=== PATIENT | female | born 1980 | race Caucasian/White ===

== ENCOUNTER 2016-07-23 10:03 | Observation (INO) | payer OTHER ==
[~2016-07-23] VITALS: Ht 162.6 cm; Wt 150.0 kg
[~2016-07-23 10:03] MED LIST: CELE20TA PO; COLE1TAB2 PO; HYDR-3516 PO; LAMI200T PO; MULTTAB67 PO; OMEP20TA PO; SERO300T PO; XYZA5TAB2 PO
[2016-07-23] MEDS ORDERED: NEOSTIGMINE 3 MG/3 ML SYR IV ONE (12:00)
[2016-07-23] MEDS ORDERED: PROPOFOL 200 MG/20 ML AMP IV ONE (12:00)
[2016-07-23] MEDS ORDERED: LACTATED RINGER'S 1000 ML INJ 2,000 ML IV ONE (12:00)
[2016-07-23] MEDS ORDERED: ONDANSETRON HCL 4 MG/2 ML VIAL IV PUSH ONE (12:00)
[2016-07-23 12:58] VITALS: BP 181/103; PULSE 109; RESP 16; TEMP 97.3; O2SAT 96
[2016-07-23] MEDS ORDERED: METOPROLOL TARTRATE 25 MG TAB PO PRN (13:30)
[2016-07-23] MEDS ORDERED: INSULIN HUMAN REGULAR 1,000 UNITS/10 ML VIAL SQ PRN (13:30)
[2016-07-23] MEDS ORDERED: LACTATED RINGER'S 1000 ML IV SCH (13:30)
[2016-07-23] MEDS ORDERED: SODIUM CHLORID 0.9% 500 ML IV SCH (13:30)
[2016-07-23] MEDS ORDERED: ceFAZolin 2 GM PREMIX 50 ML ONE (15:15)
[2016-07-23] MEDS ORDERED: MICROFIBRILLAR COLLAGEN HEMOSTAT 70 X 35 MM BANDAGE ONE (15:15)
[2016-07-23] MEDS ORDERED: THROMBIN (TOPICAL) 5,000 UNIT VIAL ONE ×2 (15:15→15:49)
[2016-07-23] MEDS ORDERED: GELFOAM SIZE 100 ONE ×2 (15:15→15:50)
[2016-07-23] MEDS ORDERED: VANCOMYCIN HCL 1000 MG VIAL ONE (15:15)
[2016-07-23] MEDS ORDERED: SODIUM CHLOR 0.9% 250 ML INJ 250 ML ONE (15:16)
[2016-07-23] MEDS ORDERED: DEXAMETHASONE SOD PHOS 20 MG/5 ML VIAL ONE ×2 (15:16→15:50)
[2016-07-23] MEDS ORDERED: GENTAMICIN SULFATE 80 MG/2 ML VIAL ONE ×2 (15:16→15:51)
[2016-07-23] MEDS ORDERED: ACETAMINOPHEN 1000 MG/100 ML VIAL IV ONE (15:44)
[2016-07-23] MEDS ORDERED: SUGAMMADEX SODIUM 200 MG/2 ML VIAL IV PUSH ONE ×2 (15:44)
[2016-07-23] MEDS ORDERED: PROPOFOL 500 MG/50 ML INJ 50 ML ONE ×3 (15:46→15:47)
[2016-07-23] MEDS ORDERED: MICROFIBRILLAR COLLAGEN HEMOSTAT 1 GM PKT ONE (15:50)
[2016-07-23] MEDS ORDERED: ceFAZolin INJ 1,000 MG VIAL ONE (15:50)
[2016-07-23] MEDS ORDERED: MIDAZOLAM HCL 2 MG/2 ML VIAL ONE ×2 (16:09→16:46)
[2016-07-23] MEDS ORDERED: FAMOTIDINE 20 MG/2 ML VIAL ONE ×2 (16:09→16:46)
[2016-07-23] MEDS ORDERED: SODIUM CHLORIDE 0.9% FLUSH 5 ML FLUSH IVF PRN (18:15)
[2016-07-23] MEDS ORDERED: ACETAMINOPHEN 325 MG TAB PO PRN (18:15)
[2016-07-23] MEDS ORDERED: CYCLOBENZAPRINE HCL 10 MG TAB PO PRN (18:15)
[2016-07-23] MEDS ORDERED: MENTHOL LOZENGE SUCK-ON PRN (18:15)
[2016-07-23] MEDS ORDERED: MORPHINE SULFATE 4 MG/ML INJ IV PUSH PRN ×2 (18:15)
[2016-07-23] MEDS ORDERED: BISACODYL 10 MG SUPP PR PRN (18:15)
[2016-07-23] MEDS ORDERED: ACETAMINOPHEN/HYDROcodone 325 MG/10 MG TAB PO PRN (18:15)
[2016-07-23] MEDS ORDERED: ONDANSETRON HCL 4 MG/2 ML VIAL IV PRN (18:15)
[2016-07-23] MEDS ORDERED: SUFentanil INJ 250 MCG/5 ML AMP ONE (19:13)
[2016-07-23] MEDS ORDERED: ceFAZolin 2 GM PREMIX 50 ML IV SCH ×2 (20:00→22:15)
[2016-07-23] MEDS ORDERED: HYDR-3583 PO (20:53)
--- NOTE | 2016-07-23 20:54 | PD.OP ---
Operative Report Date of Surgery: Jul 23, 2016 Preoperative Diagnosis: C6-7 disk herniation Postoperative Diagnosis: C6-7 disk herniation Procedure: C6-7 anterior cervical discectomy, interbody arthodhesis using PEEK cage filled with autologous bone graft, Simplicity plate and screws. Anesthesia: general Surgeon: Raymundo Mahmood Thermite Welder(s): sandra godwin Operation and Findings: INDICATIONS FOR THE PROCEDURE Ms Mendez is a 35 year-old female who presented with intractable neck pain and clinical evidence of C7 upper extremity radiculopathy. He was found to have significant spondylosis with stenosis. He has failed maximum nonsurgical management including multiple modalities of conservative treatment as well as pain management interventions by an interventional pain specialist. A surgical decompression and arthrodhesis were indicated. The rnsj-gf-[id number] details of the procedure, indications, alternatives, risks and potential complications were fully discussed with the patient. The patient fully understood. All The questions were answered. No guarantees were given. The patient voiced requesting the procedure and provided informed consents. The patient was offered the alternative of delaying the procedure and continuing with nonsurgical management. DETAILS OF THE SURGICAL PROCEDURE After the induction of general anesthesia, endotracheal intubation was performed. A Scherer catheter, bilateral DESEAN hose, and sequential compression devices were placed and kept throughout the procedure. Placement of electrodes for neurophysiological monitoring of the somato sensorial evoked potentials. motor evoked potentials, and EMG as well as laryngeal nerve monitoring was achieved. The patient was positioned supine on a Fabian table with the head over a gel doughnut. All pressure points were carefully padded with eggcrate mattress. The eyes were tapped shut after ointment was applied by the anesthesiologist to prevent corneal abrasion. A Elmer hugger was placed over the exposed lower body to maintain control of the core body temperature. The electrophysiological team placed the needles and electrodes in their proper location and baseline SSEP's and motor evoked potentials were registered prior and after positioning and endotracheal intubation. The anterior cervical region was prepped and draped in the usual sterile fashion. A localizing x-ray was performed with a C-arm. The intention was to attempt an arthroplasty with placement of mobi c artificial disk, however, given the patient's short neck, obesity, large shoulders and overall body habitus, it was not possible to properly visualize C6-7. It was just not possible. Over an hout was spent attemting, including any known facilitating maneuvers, pulling down the shoulders, max colimation/boosting, and the use of multiple angles. A board certified radiologist was brought into the operating room to assist and provide suggestions. The level could be only be visualize on an AP view, but lateral views of C6-7 could not uriel obtained. Therefore, it was not deemed safe the placement of a mobi C disk without proper visualization The surgical procedure was then performed in several steps as follow: SURGICAL APPROACH A skin incision was made along the inferior cervical crease with a #10 blade. The dissection was carried out through the platysma exposing the sternocleidomastoid muscle. The cervical spine was approached following the fascial layers of the neck just medial to the anterior border of the sternocleidomastoid and carotid sheath by a combination of sharp and dull dissection. The omohyoid muscle was identified and carefully dissected laterally and the deep cervical fascia was carefully opened. The longus colli muscles were retracted to each side of the midline. A marker was placed at the disc space C5-6 and a cross-table lateral x-ray performed with a C-arm. SURGICAL DECOMPRESSION In order to decompress the anterior surface of the spinal cord it was necessary to preform a microsurgical resection of the disk at C5-6 and C6-7. At this point in the procedure the operating microscope was draped in the usual sterile fashion and brought to the field. The rest of the surgical procedure was performed using microdissection technique with the exception of the closure. Under the operative microscopic, a self-retaining retractor was placed underneath the longus colli muscle. Anterior osteophite spurs werte carefully removed with the Leksell. The annulus at C5-6 and C6-7 were incised with a #15 blade and microdiscectomy was then carefully carried out using angled curets and pituitary forceps. There were a large disk extrusion producing mass effect and compression of the dural sac and nerve roots. The posterior longitudinal ligament was then elevated with an angled curet and incised with a 15 bladed knife. A careful resection of the posterior longitudinal ligament was carried out using a thin footplate 2 mm Kerrison. A nerve hook was used to assess the epidural space behind the vertebral bodies C6, and C7 in search for residual disk fragments. The margins of the posterior endplates at C6-7 were carefully drilled and undercut with a TPS drill under high magnification. The decompression was then carried out laterally, and a bilateral foraminotomy was performed with a 2mm thin foot Kerrison. Then the vertebral bodies above and below the disk space were undercut using a 2 mm thin foot Kerrison. The epidural space was the systematically assessed with a nerve hook in search for disk fragments of scar tissue. An excellent decompression was achieved in both , the dural sac and bilateral exiting nerve roots. The incision was then irrigated with a large amount of antibiotic solution INTERBODY ARTHRODHESIS In order to avoid collapse of the disk space which would result in bilateral foraminal stenosis, and to increase the chances of a successful fusion, it was necessary to place an interbody cage filled with autologous bone. At this point of the procedure, the superior and inferior endplates were then evenly decorticated with a TPS drill. The use of a drill in combination with a curette allowed me to systematically remove the cartilaginous endplates, exposing healthy bone for the interbody arthrodesis. Fourteen millimeters distraction pins were then placed at the vertebral bodies adjacent to the disk space, and gentle distraction was applied. The size of the interbody cage was then assessed using different size spacers, and a rasp was used to ensure no residual cartilage. A PEEK cage of the appropriate size was selected, and the interbody arthrodesis was then preformed by carefully impacting a PEEK cage filled with autologous bone graft to the disc spaces C6-7. An excellent position of the cage was achieved. This was was confirmed anatomically by feeling the space posterior to the implant and distance to the anterior surface of the dural sac. Radiological confirmation of the position was performed with a cross lateral xray performed with the C-arm. INTERNAL INSTRUMENTAL FIXATION Once that the interbody device was in an appropriate position, it was necessary to stabilize the spine with anterior instrumentation. Anterior instrumentation has demonstrated to increase the rate of fusion, accelerate the patient's recovery, and decrease the rate of failed interbody grafts. At this point of the procedure, the distance between the vertebral bodies was carefully measures, and a Simplicity plate was brought to the field and presented in front of the vertebral bodies C6, and C7. Configuration Management Architect holes were then drilled using the TPS drill, and the plate was then secured to the spine using self-drilling, self-tapping screws. Initially, the inferior right screw was inserted, followed by placement of the contralateral upper screw. The remanding screws were sequentially placed in a contra-lateral fashion. A proper purchase was achieved with all screws and the position of the cage, plate and screws, and alignment of the spine was assessed anatomically by direct visualization, and radiologically by performing a cross lateral xray of the cervical spine with the C-arm. CLOSURE The incision was irrigated with several liters of antibiotic solution. Hemostasis was achieved with a bipolar. The screws were locked to prevent backing out. A 7 mm Fabian-Schmidt drain was left in the prevertebral space and externalized through a separate stab incision. The incision was then closed in layers. 3-0 Vicryl with interrupted sutures was used to close the platysma and subcutaneous tissue. The skin was closed with 4-0 running subcuticular Vicryl and glue was applied to the skin. The drain was secured with a 3-0 nylon. At the end of the procedure the sponge, needle and instrument counts were all correct. The estimated blood loss was less than 80 cc. No blood transfusion was given. No intraoperative complications occurred. The patient received prophylactic antibiotics. The patient was then extubated and transferred to the recovery room in stable condition. Raymundo Mahmood MD Jul 23, 2016 20:54
[2016-07-23] MEDS ORDERED: DEXAMETHASONE SOD PHOS 4 MG/ML VIAL IV SCH (21:00)
[2016-07-23] MEDS ORDERED: LEVOCETIRIZINE 5 MG PO SCH (21:00)
[2016-07-23] MEDS ORDERED: fentaNYL CITRATE 250 MCG/5 ML AMP ONE (21:47)
[2016-07-23] MEDS ORDERED: MORPHINE SULFATE 4 MG/ML INJ ONE (21:48)
[2016-07-23] MEDS: SODIUM CHLORIDE 0.9% FLUSH 5 ML FLUSH IVF SCH (22:00)
[2016-07-23] MEDS: NS + KCL 20 MEQ INJ 1,000 ML IV SCH (22:00)
[2016-07-23] MEDS ORDERED: *morphine SULFATE 8 MG/ML PERIprocedure ONLY ONE ×2 (22:10→22:33)
[2016-07-23] MEDS ORDERED: *MEPERIDINE 25 MG INJ VIAL PERIprocedural Use ONLY ONE (22:11)
[2016-07-23] MEDS ORDERED: DO NOT ADM ANY ANTICOAGULANT DRUGS XX PRN (22:15)
--- NOTE | 2016-07-23 22:28 | RADRPT ---
EXAM DATE/TIME: 07/23/2016 17:05 [facility] COMPARISON: No previous studies available for comparison. INDICATIONS : C6-C7 cervical diskectomy with fusion MEDICAL HISTORY : None. SURGICAL HISTORY : None. ENCOUNTER: Initial ACUITY: 1 day PAIN SCORE: Non-responsive. LOCATION: C6-C7 Cervical spine CONCLUSION: Fluoroscopic images during anterior fusion plate and intervertebral disc device at C6-7 level. Zach Green MD on July 23, 2016 at 22:25 Board Certified Radiologist. This report was verified electronically.
[2016-07-23 23:35] VITALS: BP 130/60; PULSE 115; RESP 20; TEMP 98.8; O2SAT 91
[2016-07-24] VITALS (7 sets, daily range): BP systolic 120–129; BP diastolic 63–74; PULSE 108–123; RESP 16–22; TEMP 96.2–98; O2SAT 92–98
[2016-07-24] MEDS: QUEtiapine FUMARATE 300 MG TAB PO SCH ×2 (00:04→20:11)
[2016-07-24] MEDS: lamoTRIgine 100 MG TAB PO SCH ×3 (00:04→20:11)
[2016-07-24] MEDS: CITALOPRAM HYDROBROMIDE 20 MG TAB PO SCH ×2 (00:04→20:11)
[2016-07-24] MEDS: DOCUSATE SODIUM 100 MG CAP PO SCH ×3 (00:04→20:10)
[2016-07-24] MEDS: DEXAMETHASONE SOD PHOS 4 MG/ML VIAL IV SCH ×3 (00:06→14:28)
[2016-07-24] MEDS: ceFAZolin 2 GM PREMIX 50 ML IV SCH ×3 (01:33→17:57)
[2016-07-24] MEDS: ACETAMINOPHEN/HYDROcodone 325 MG/10 MG TAB PO PRN ×5 (05:22→23:10)
[2016-07-24] MEDS: COLESTIPOL HCL 5 GM PACKET PO SCH ×3 (08:00→18:04)
[2016-07-24] MEDS: MULTIVITAMIN TAB PO SCH (08:33)
[2016-07-24] MEDS: PANTOPRAZOLE SOD 40 MG DELAYED RELEASE TAB PO SCH (08:33)
[2016-07-24] MEDS: SODIUM CHLORIDE 0.9% FLUSH 5 ML FLUSH IVF SCH ×2 (08:35→20:11)
[2016-07-24] MEDS: NS + KCL 20 MEQ INJ 1,000 ML IV SCH (08:40)
[2016-07-24] MEDS ORDERED: PANTOPRAZOLE SOD 20 MG DELAYED RELEASE TAB PO SCH (09:00)
[2016-07-24] MEDS ORDERED: CYCL1TAB29 PO (14:49)
[2016-07-24] MEDS ORDERED: HYDR-3583 PO (14:49)
--- NOTE | 2016-07-24 20:38 | HHI.DS ---
Discharge Summary Admission Date Jul 23, 2016 at 18:10 Discharge Date: Jul 25, 2016 Admitting Diagnosis Cervical herniated disc (1) Cervical radiculopathy Diagnosis: Principal Hospital Course The patient was observed for breathing and pain control over night. She did well with PT. Pt Condition on Discharge: Good Discharge Disposition: Discharge Home Discharge Instructions DIET: Follow Instructions for: As Tolerated, No Restrictions Speech Therapy-Diet Recommenda: Soft ADDITIONAL Diet Instructions: soft, slow ACTIVITIES You can perform: Weight Bearing As Rajani Activities to Avoid: Driving New Medications: Cyclobenzaprine (Flexeril) 10 Mg Tab 10 MG PO Q8H PRN MUSCLE SPASM #90 Ref 5 TAB Hydrocodone-Acetaminophen (Hydrocodone-Acetaminophen) 10-325 mg Tab 1 TAB PO Q8HR PRN PAIN SCALE 1 TO 10 #62 Ref 0 TAB Hydrocodone-Acetaminophen (Hydrocodone-Acetaminophen) 10-325 mg Tab 10 MG PO Q4H PRN PAIN SCALE 6 TO 10 #60 Ref 1 TAB Continued Medications: Citalopram (Celexa) 20 Mg Tab 20 MG PO HS Control Depression #30 Ref 0 TAB Colestipol (Colestipol) 1 Gm Tab 2 GM PO TID Cholesterol Management #60 Ref 0 TAB Hydrocodone-Acetaminophen (Hydrocodone-Acetaminophen) 5-325 mg Tab 1 TAB PO Q4H PRN PAIN Ref 0 TAB Lamotrigine (Lamictal) 200 Mg Tab 200 MG PO BID Control Seizures #60 Ref 0 TAB Levocetirizine (Xyzal) 5 Mg Tab 5 MG PO HS Allergy Management #30 Ref 0 TAB Multiple Vitamin (Multiple Vitamin) 1 Tab 1 TAB PO DAILY Nutritional Supplement Ref 0 TAB Omeprazole (Omeprazole) 20 Mg Tab 20 MG PO DAILY #30 Ref 0 TAB Quetiapine (Seroquel) 300 Mg Tab 300 MG PO HS #30 Ref 0 TAB Rojelio Laughlin Jul 24, 2016 20:38
--- NOTE | 2016-07-24 20:41 | HHI.NSPN ---
History Chief Complaint: none Interval History 35 yr old s/p ACDF for cervical radiculopathy has no complaints today. Review of Systems General: Negative for: fever, chills, insomnia Cardiovascular: Negative for: chest pain, palpitations, orthopnea Exam Results Vital Signs Date Time Temp Pulse Resp B/P Pulse Ox O2 Delivery O2 Flow Rate FiO2 07/24/16 16:02 97 Nasal Cannula 3.00 07/24/16 16:00 98.0 108 16 120/70 Intake and Output 07/23/16 07/23/16 07/24/16 08:00 16:00 00:00 Intake Total 3200 ml Output Total 410 ml Balance 2790 ml Physical Examination Alert and oriented x 3, Motor 5/5 in both delt/bic/tri/IO Sensory intact to LT throughout Drain removed, 15 cc total. Wound dry Medical Decision Making Impression and Plan Stable, pain management and PT was helpful today.Plan home discharge with family in the am. Questions were answered. Total Minutes: 10 Rojelio Laughlin Jul 24, 2016 20:41
[2016-07-25] VITALS: BP 133/81; PULSE 101; RESP 18; TEMP 98; O2SAT 95
[2016-07-25 04:00] VITALS: BP 154/90; PULSE 102; RESP 22; TEMP 97.1; O2SAT 97
[2016-07-25] MEDS: ACETAMINOPHEN/HYDROcodone 325 MG/10 MG TAB PO PRN ×2 (05:31→09:34)
[2016-07-25 06:04] VITALS: O2SAT 97
[2016-07-25] MEDS: MULTIVITAMIN TAB PO SCH (07:13)
[2016-07-25] MEDS: lamoTRIgine 100 MG TAB PO SCH (07:13)
[2016-07-25] MEDS: DOCUSATE SODIUM 100 MG CAP PO SCH (07:13)
[2016-07-25] MEDS: PANTOPRAZOLE SOD 40 MG DELAYED RELEASE TAB PO SCH (07:13)
[2016-07-25] MEDS: SODIUM CHLORIDE 0.9% FLUSH 5 ML FLUSH IVF SCH (07:13)
[2016-07-25] MEDS: COLESTIPOL HCL 5 GM PACKET PO SCH (07:14)
[2016-07-25 08:00] VITALS: BP 157/99; PULSE 91; RESP 19; TEMP 95.9; O2SAT 98
[2016-07-25 09:36] VITALS: O2SAT 97
[2016-08-04] MEDS ORDERED: HYDR-3583 PO ×2 (15:25)
== END 2016-07-25 11:31 | disposition home or self-care (01) ==
LOC: UNDOADMIN 10:03 → HSDC 10:03 → HSDI 10:03 → EDSTATUS 12:00 → HSDC 18:10 → HSDI 18:10 → INTOOBSV 18:10 → N06A 23:11
PROVIDERS: ADMIT Neurological Surgery; ATTEND Neurological Surgery
DX: M50.123 Cervical disc disorder at C6-C7 level with radiculopathy (principal); M47.9 Spondylosis, unspecified; E66.9 Obesity, unspecified; Z68.43 Body mass index [BMI] 50.0-59.9, adult
CPT/HCPCS: 00600; 20937; 22551; 22851; 72040; 76000; 86850; 86900; 86901; 94150; 97001; C1713; G0378; J0131; J0690; J1100; J1580; J2175; J2250; J2270; J2405; J2710; J3010; J3370; J3480; J7050; J7120; L0150; L0172

== ENCOUNTER 2017-10-26 20:40 | Inpatient (IN) | payer OTHER ==
[~2017-10-26] VITALS: Ht 162.6 cm; Wt 152.0 kg
[~2017-10-26 20:40] MED LIST changes: +CYCL10TA PO; +HYDR-3583 PO; -OMEP20TA PO; +OMEP20TA93 PO
[2017-10-26 22:08] VITALS: BP 186/114; PULSE 130; RESP 24; TEMP 99.5; O2SAT 98
[2017-10-26 23:11] VITALS: BP 143/78; PULSE 130; RESP 18; TEMP 99.9; O2SAT 98
[2017-10-26 23:13] VITALS: O2SAT 98
[2017-10-26 23:20] LABS: AUTOMATED NEUTROPHIL # 19.1 TH/MM3 (1.8-7.7); BASOPHIL # 0.1 TH/MM3 (0-0.2); BASOPHIL % 0.3 % (0.0-2.0); EOSINOPHIL # 0.6 TH/MM3 (0-0.4); EOSINOPHIL % 2.4 % (0.0-4.0); HEMATOCRIT 40.4 % (35.0-46.0); HEMOGLOBIN 13.7 GM/DL (11.6-15.3); LYMPH % 11.7 % (9.0-44.0); LYMPHOCYTE # 2.8 TH/MM3 (1.0-4.8); MEAN CELL VOLUME 89.1 FL (80.0-100.0); MEAN CORPUSCULAR HEMOGLOBIN 30.1 PG (27.0-34.0); MEAN CORPUSCULAR HGB CONC 33.8 % (32.0-36.0); MEAN PLATELET VOLUME 8.9 FL (7.0-11.0); MONO % 5.7 % (0.0-8.0); MONOCYTE # 1.4 TH/MM3 (0-0.9); NEUT % 79.9 % (16.0-70.0); PLATELET COUNT 291 TH/MM3 (150-450); RED BLOOD COUNT 4.54 MIL/MM3 (4.00-5.30); RED CELL DISTRIBUTION WIDTH 13.2 % (11.6-17.2); WHITE BLOOD COUNT 23.9 TH/MM3 (4.0-11.0)
[2017-10-26] MEDS ORDERED: SODIUM CHLOR 0.9% 1000 ML INJ 1,000 ML IV ONE (23:30)
[2017-10-26] MEDS ORDERED: CLINDAMYCIN 600 MG/NS PREMIX 50 ML IV ONE (23:30)
[2017-10-26] MEDS ORDERED: KETOROLAC TROMETHAMINE 30 MG/ML (IVP) VIAL IV PUSH ONE (23:30)
[2017-10-26 23:31] LABS: ALKALINE PHOSPHATASE 102 U/L (45-117); LACTIC ACID SEPSIS PROTOCOL 2.9 mmol/L (0.4-2.0); TOTAL BILIRUBIN ADULT 0.3 MG/DL (0.2-1.0); TOTAL PROTEIN 7.8 GM/DL (6.4-8.2)
[2017-10-26 23:40] LABS: ALBUMIN 3.4 GM/DL (3.4-5.0); ALT (GPT) 36 U/L (10-53); AST (GOT) 23 U/L (15-37); BICARBONATE 27.4 MEQ/L (21.0-32.0); BLOOD UREA NITROGEN 9 MG/DL (7-18); CALCIUM 8.7 MG/DL (8.5-10.1); CHLORIDE 104 MEQ/L (98-107); CREATININE 0.85 MG/DL (0.50-1.00); GLOMERULAR FILTRATION RATE 76 ML/MIN (>89); GLUCOSE,RANDOM 126 MG/DL (74-106); SODIUM (NA) 140 MEQ/L (136-145)
[2017-10-27] VITALS (7 sets, daily range): BP systolic 139–184; BP diastolic 70–100; PULSE 102–119; RESP 16–20; TEMP 97–98.8; O2SAT 92–99
--- NOTE | 2017-10-27 00:08 | PD ---
HPI Chief Complaint: Skin Problem Time Seen by Provider: 22:45 Travel History International Travel<30 days: No Contact w/Intl Traveler<30days: No Traveled to known affect area: No History of Present Illness HPI Patient is a 37-year-old female who has had 4 days of a worsening eschar around her hypoumbilical area above the pubic symphysis it is on the points of her lip very obese abdomen center has a subcutaneous purple center 1 cm surrounded by a 3 cm halo of very erythematous area and then there is the redness cellulitic distribution about 20 cm round base center bite chacho. Patient is unaware of how it appeared her but it began as a small little papule it is progressed over 4 days she has not taken any antibiotics it is getting worse it is warm it is tender. She went to an urgent care they told her this is more than they can handle and center to the ER. Pain is localized to the center of the eschar and it is constant made worse with moving and touching it she is on no antibiotics at this time she did not take Motrin she did not take Tylenol. He continues in the ER it is gotten worse over the last 4 days PFSH Past Medical History Depression: Yes Cancer: No Endocrine: No Gastrointestinal Disorders: Yes (GERD, ULCERATIVE COLITIS) Genitourinary: No Hepatitis: No Hiatal Hernia: No Musculoskeletal: Yes (DDD, BULDGING CERVICAL DISC) Neurologic: Yes Psychiatric: Yes (DEPRESSION) Reproductive: No Respiratory: Yes (BEST) Migraines: Yes (OCCASIONAL) Sleep Apnea: Yes Tetanus Vaccination: Unknown Influenza Vaccination: No ?: Not LMP: IUD Past Surgical History Abdominal Surgery: Yes (CHOLECYSTECTOMY,APPENDECTOMY) AICD: No Appendectomy: Yes Body Medical Devices: IUD Cardiac Surgery: No Cholecystectomy: Yes Ear Surgery: No Eye Surgery: No Genitourinary Surgery: No Gynecologic Surgery: No Joint Replacement: No Neurologic Surgery: Yes (LEFT ULNAR NERVE DECOMPRESSION) Oral Surgery: Yes (TONSILLECTOMY) Pacemaker: No Thoracic Surgery: No Tonsillectomy: Yes Other Surgery: Yes (sinus) Social History Alcohol Use: No Tobacco Use: No Substance Use: No Allergies-Medications (Allergen,Severity, Reaction): Coded Allergies: bacitracin (Unverified Allergy, Intermediate, skin reaction, 03/09/17) benzoin (Unverified Allergy, Intermediate, skin reaction, 03/09/17) doxycycline (Unverified Allergy, Intermediate, rash, 03/09/17) gramicidin D (Unverified Allergy, Intermediate, skin reaction, 03/09/17) levofloxacin (Unverified Allergy, Intermediate, rash, 03/09/17) minocycline (Unverified Allergy, Intermediate, rash, 03/09/17) neomycin (Unverified Allergy, Intermediate, skin reaction, 03/09/17) polymyxin B (Unverified Allergy, Intermediate, skin reaction, 03/09/17) storax (Unverified Allergy, Intermediate, skin reaction, 03/09/17) koby balsam (Unverified Allergy, Intermediate, skin reaction, 03/09/17) prochlorperazine (Unverified Adverse Reaction, Severe, anxiety, 03/09/17) Reported Meds & Prescriptions Reported Meds & Active Scripts Active Flexeril (Cyclobenzaprine HCl) 10 Mg Tab 10 Mg PO Q8H PRN Reported Multiple Vitamin 1 Tab 1 Tab PO DAILY Celexa (Citalopram Hydrobromide) 20 Mg Tab 20 Mg PO HS Xyzal (Levocetirizine) 5 Mg Tab 5 Mg PO HS Lamictal (Lamotrigine) 200 Mg Tab 200 Mg PO BID Colestipol (Colestipol HCl) 1 Gm Tab 2 Gm PO TID Seroquel (Quetiapine Fumarate) 300 Mg Tab 300 Mg PO HS Omeprazole 20 Mg Tab 20 Mg PO DAILY Review of Systems Except as stated in HPI: all other systems reviewed are Neg Physical Exam Narrative GENERAL: SKIN: Warm and dry. Patient has a 20 cm erythematous area red warm tender in the center there is a 2 cm purple subcu round area surrounded by a very red ring 3 cm. Is severely tender and warm HEAD: Atraumatic. Normocephalic. EYES: Pupils equal and round. No scleral icterus. No injection or drainage. ENT: No nasal bleeding or discharge. Mucous membranes pink and moist. NECK: Trachea midline. No JVD. CARDIOVASCULAR: Regular rate and rhythm. RESPIRATORY: No accessory muscle use. Clear to auscultation. Breath sounds equal bilaterally. GASTROINTESTINAL: Abdomen soft, non-tender, nondistended. Hepatic and splenic margins not palpable. MUSCULOSKELETAL: Extremities without clubbing, cyanosis, or edema. No obvious deformities. NEUROLOGICAL: Awake and alert. No obvious cranial nerve deficits. Motor grossly within normal limits. Five out of 5 muscle strength in the arms and legs. Normal speech. PSYCHIATRIC: Appropriate mood and affect; insight and judgment normal. [id number]-[id number] ultrasound I see that there is an abscess of fluid collection below the eschar in the center Data Data Last Documented VS Orders Orders Sepsis Workup Initiated (10/26/17 ) Complete Blood Count With Diff (10/26/17 22:13) Comprehensive Metabolic Panel (10/26/17 22:13) Urinalysis - C+S If Indicated (10/26/17 22:13) Lactic Acid Sepsis Protocol (10/26/17 22:13) Blood Culture (10/26/17 22:13) Iv Access Insert/Monitor (10/26/17 22:13) Oxygen Administration (10/26/17 22:13) Oximetry (10/26/17 22:13) Blood Glucose (10/26/17 22:13) Ed Urine Pregnancytest Poc (10/26/17 22:13) Clindamycin 600 Mg/Ns Premix (Cleocin 60 (10/26/17 23:30) Ketorolac Inj (Toradol Inj) (10/26/17 23:30) Sodium Chlor 0.9% 1000 Ml Inj (Ns 1000 M (10/26/17 23:30) Lidocai-Epi 2%-1:100,000 Inj (Xylocaine- (10/27/17 00:15) Morphine Inj (Morphine Inj) (10/27/17 00:45) Wound Culture And Gram Stain (10/27/17 00:46) Sodium Chlor 0.9% 1000 Ml Inj (Ns 1000 M (10/27/17 03:15) Morphine Inj (Morphine Inj) (10/27/17 03:15) Admit Order (Ed Use Only) (10/27/17 03:07) Labs Laboratory Tests Test 10/26/17 23:00 10/27/17 00:56 10/27/17 01:50 White Blood Count 23.9 TH/MM3 Red Blood Count 4.54 MIL/MM3 Hemoglobin 13.7 GM/DL Hematocrit 40.4 % Mean Corpuscular Volume 89.1 FL Mean Corpuscular Hemoglobin 30.1 PG Mean Corpuscular Hemoglobin Concent 33.8 % Red Cell Distribution Width 13.2 % Platelet Count 291 TH/MM3 Mean Platelet Volume 8.9 FL Neutrophils (%) (Auto) 79.9 % Lymphocytes (%) (Auto) 11.7 % Monocytes (%) (Auto) 5.7 % Eosinophils (%) (Auto) 2.4 % Basophils (%) (Auto) 0.3 % Neutrophils # (Auto) 19.1 TH/MM3 Lymphocytes # (Auto) 2.8 TH/MM3 Monocytes # (Auto) 1.4 TH/MM3 Eosinophils # (Auto) 0.6 TH/MM3 Basophils # (Auto) 0.1 TH/MM3 CBC Comment DIFF FINAL Differential Comment Blood Urea Nitrogen 9 MG/DL Creatinine 0.85 MG/DL Random Glucose 126 MG/DL Total Protein 7.8 GM/DL Albumin 3.4 GM/DL Calcium Level 8.7 MG/DL Alkaline Phosphatase 102 U/L Aspartate Amino Transf (AST/SGOT) 23 U/L Alanine Aminotransferase (ALT/SGPT) 36 U/L Total Bilirubin 0.3 MG/DL Sodium Level 140 MEQ/L Potassium Level 3.5 MEQ/L Chloride Level 104 MEQ/L Carbon Dioxide Level 27.4 MEQ/L Anion Gap 9 MEQ/L Estimat Glomerular Filtration Rate 76 ML/MIN Lactic Acid Level 2.9 mmol/L 3.0 mmol/L Urine Color LIGHT-YELLOW Urine Turbidity CLEAR Urine pH 7.0 Urine Specific Thornton 1.016 Urine Protein 30 mg/dL Urine Glucose (UA) NEG mg/dL Urine Ketones NEG mg/dL Urine Occult Blood MOD Urine Nitrite NEG Urine Bilirubin NEG Urine Urobilinogen LESS THAN 2.0 MG/DL Urine Leukocyte Esterase NEG Urine RBC 10 /hpf Urine WBC LESS THAN 1 /hpf Urine Squamous Epithelial Cells 1 /hpf Urine Bacteria RARE /hpf Urine Mucus FEW /lpf Microscopic Urinalysis Comment CULT NOT INDICATED MDM Medical Decision Making Medical Screen Exam Complete: Yes Emergency Medical Condition: Yes Differential Diagnosis abscess with sepsis vs cellulitis or abscess cellulitis and fever from other viral source , Narrative Course I and D and IV antibiotics and will admit due to fever without other source other than abdo abscess Procedures Procedure Narrative i prformed I AND D on 4 cm abscess on abdomen lidocaine 1 cc injected local anesthesia,, . betadine prep and sterile technique pus expressed and wound packed with iodoform Scripts Amlodipine (Amlodipine) 5 Mg Tab 5 MG PO DAILY for Blood Pressure Management, #30 TAB 0 Refills Prov: Ahmed,Shahabuddin DO 10/30/17 Hydrocodone-Acetaminophen (Hydrocodone-Acetaminophen) 10-325 mg Tab 10 MG PO Q6HR Y for PAIN SCALE 6 TO 10, #15 TAB 1 Refill Prov: Basil Miranda DO 10/30/17 Sulfamethoxazole-Trimethoprim (Bactrim DS) 800-160 Mg Tab 1 TAB PO BID for Infection, #28 TAB 0 Refills Prov: Basil Miranda DO 10/29/17 Joshua Coelho MD Oct 27, 2017 00:08
[2017-10-27] MEDS ORDERED: LIDOCAINE 2%/EPINEPHrine 1:100,000 20ML MDV NERV BLOCK ONE (00:15)
[2017-10-27] MEDS ORDERED: MORPHINE SULFATE 4 MG/ML INJ IV PUSH ONE ×2 (00:45→03:15)
[2017-10-27 01:06] LABS: BACTERIA, URINE RARE /hpf; BILIRUBIN, URINE NEG (NEG); BLOOD, URINE MOD (NEG); GLUCOSE,URINE NEG (NEG); KETONE, URINE NEG (NEG); MUCUS URINE FEW /lpf (OCC); NITRITE,URINE NEG (NEG); SQUAMOUS EPITHELIAL CELL URINE 1 /hpf (0-5); URINE COLOR LIGHT-YELLOW (YELLW/STRAW); URINE LEUKOCYTE ESTERASE NEG (NEG)
[2017-10-27] MEDS ORDERED: SODIUM CHLOR 0.9% 1000 ML INJ 1,000 ML IV ONE ×2 (03:15→04:45)
[2017-10-27] MEDS ORDERED: Vancomycin Consult Pharmacy 1 EA OTHER SCH (04:30)
[2017-10-27] MEDS ORDERED: SODIUM CHLORIDE 0.9% FLUSH 10 ML FLUSH IV FLUSH PRN (04:30)
[2017-10-27] MEDS ORDERED: ACETAMINOPHEN 325 MG TAB PO PRN (04:30)
[2017-10-27] MEDS ORDERED: VANCOMYCIN INJ 1,500 MG in SODIUM CHLORID 0.9% 500 ML INJ 500 ML IV ONE (04:30)
[2017-10-27] MEDS ORDERED: SENNOSIDES 8.6 MG TAB PO PRN (04:30)
[2017-10-27] MEDS ORDERED: BISACODYL 10 MG SUPP RECTAL PRN (04:30)
[2017-10-27] MEDS ORDERED: ONDANSETRON HCL 4 MG/2 ML VIAL IVP PRN (04:30)
[2017-10-27] MEDS ORDERED: NALOXONE HCL 0.4 MG/ML AMP IV PUSH PRN (04:30)
[2017-10-27] MEDS ORDERED: MAGNESIUM HYDROXIDE SUSP 30 ML CUP PO PRN (04:30)
--- NOTE | 2017-10-27 05:32 | HHI.HP ---
HPI Service [facility] Primary Care Physician Nba White MD Admission Diagnosis abdo abscess , early spesis Diagnoses: Travel History International Travel<30 Days: No Contact w/Intl Traveler <30 Da: No Traveled to Known Affected Are: No History of Present Illness 37-year-old female with a past medical history significant for ulcerative colitis, migraines and bipolar disorder presents to the emergency department for evaluation of an abdominal abscess/cellulitis. The patient was initially seen in urgent care who noted that she had a fever and an abdominal abscess and sent her to the emergency department for further evaluation. The patient states that on Tuesday night she had a red spot on her abdomen that progressively worsened. She states that over the course of yesterday the redness spread and the area became acutely painful. She is status post incision and drainage of the abscess in the emergency department. She endorses fever/chills. Denies any chest pain or shortness of breath. No nausea/vomiting /diarrhea. No weakness. Review of Systems Except as stated in HPI: all other systems reviewed are Neg Past Family Social History Past Medical History Ulcerative colitis Migraines Bipolar disorder Past Surgical History Neck fusion at C6-7 Tonsillectomy Deviated septum repair Nasal polyp removal Left shoulder arthroscopically Left ulnar nerve decompression Cholecystectomy Appendectomy Right knee arthroscopic Plantar fasciitis surgery Tarsal tunnel release Reported Medications Reported Meds & Active Scripts Active Hydrocodone-Acetaminophen 10-325 mg Tab 10 Mg PO Q4H PRN Hydrocodone-Acetaminophen 10-325 mg Tab 1 Tab PO Q8HR PRN Flexeril (Cyclobenzaprine HCl) 10 Mg Tab 10 Mg PO Q8H PRN Reported Multiple Vitamin 1 Tab 1 Tab PO DAILY Hydrocodone-Acetaminophen 5-325 mg Tab 1 Tab PO Q4H PRN Celexa (Citalopram Hydrobromide) 20 Mg Tab 20 Mg PO HS Xyzal (Levocetirizine) 5 Mg Tab 5 Mg PO HS Lamictal (Lamotrigine) 200 Mg Tab 200 Mg PO BID Colestipol (Colestipol HCl) 1 Gm Tab 2 Gm PO TID Seroquel (Quetiapine Fumarate) 300 Mg Tab 300 Mg PO HS Omeprazole 20 Mg Tab 20 Mg PO DAILY Allergies: Coded Allergies: bacitracin (Unverified Allergy, Intermediate, skin reaction, 03/09/17) benzoin (Unverified Allergy, Intermediate, skin reaction, 03/09/17) doxycycline (Unverified Allergy, Intermediate, rash, 03/09/17) gramicidin D (Unverified Allergy, Intermediate, skin reaction, 03/09/17) levofloxacin (Unverified Allergy, Intermediate, rash, 03/09/17) minocycline (Unverified Allergy, Intermediate, rash, 03/09/17) neomycin (Unverified Allergy, Intermediate, skin reaction, 03/09/17) polymyxin B (Unverified Allergy, Intermediate, skin reaction, 03/09/17) storax (Unverified Allergy, Intermediate, skin reaction, 03/09/17) koby balsam (Unverified Allergy, Intermediate, skin reaction, 03/09/17) prochlorperazine (Unverified Adverse Reaction, Severe, anxiety, 03/09/17) Family History Father with diabetes mellitus Social History Denies alcohol, tobacco and illicit drugs Physical Exam Vital Signs Vital Signs Date Time Temp Pulse Resp B/P (MAP) Pulse Ox O2 Delivery O2 Flow Rate FiO2 10/27/17 04:55 97.0 113 20 174/86 (115) 97 10/27/17 03:57 111 18 10/27/17 03:15 98.8 118 16 152/70 (97) 99 Room Air 10/27/17 01:26 119 16 139/70 (93) 99 Room Air 10/26/17 23:13 98 Room Air 10/26/17 23:13 98 Room Air 10/26/17 23:11 99.9 130 18 143/78 (99) 98 Room Air 10/26/17 22:08 99.5 130 24 186/114 (138) 98 Physical Exam GENERAL: Obese, female lying in bed SKIN: Erythema that extends across the lower portion of the abdomen. Status post I&D, dressed with mild shadowing on the dressing. Warm. HEAD: Atraumatic. Normocephalic. No temporal or scalp tenderness. EYES: Pupils equal round and reactive. Extraocular motions intact. No scleral icterus. No injection or drainage. ENT: Nose without bleeding, purulent drainage or septal hematoma. Throat without erythema, tonsillar hypertrophy or exudate. Uvula midline. Airway patent. NECK: Trachea midline. No JVD or lymphadenopathy. Supple, nontender, no meningeal signs. CARDIOVASCULAR: Regular rate and rhythm without murmurs, gallops, or rubs. RESPIRATORY: Clear to auscultation. Breath sounds equal bilaterally. No wheezes , rales, or rhonchi. GASTROINTESTINAL: Abdomen soft, non-tender, nondistended. No hepato-splenomegaly , or palpable masses. No guarding. MUSCULOSKELETAL: Extremities without clubbing, cyanosis, or edema. No joint tenderness, effusion, or edema noted. No calf tenderness. NEUROLOGICAL: Awake and alert. Cranial nerves II through XII intact. Motor and sensory grossly within normal limits. Normal speech. Laboratory Laboratory Tests Test 10/26/17 23:00 10/27/17 00:56 10/27/17 01:50 10/27/17 04:35 White Blood Count 23.9 Red Blood Count 4.54 Hemoglobin 13.7 Hematocrit 40.4 Mean Corpuscular Volume 89.1 Mean Corpuscular Hemoglobin 30.1 Mean Corpuscular Hemoglobin Concent 33.8 Red Cell Distribution Width 13.2 Platelet Count 291 Mean Platelet Volume 8.9 Neutrophils (%) (Auto) 79.9 Lymphocytes (%) (Auto) 11.7 Monocytes (%) (Auto) 5.7 Eosinophils (%) (Auto) 2.4 Basophils (%) (Auto) 0.3 Neutrophils # (Auto) 19.1 Lymphocytes # (Auto) 2.8 Monocytes # (Auto) 1.4 Eosinophils # (Auto) 0.6 Basophils # (Auto) 0.1 CBC Comment DIFF FINAL Differential Comment Blood Urea Nitrogen 9 Creatinine 0.85 Random Glucose 126 Total Protein 7.8 Albumin 3.4 Calcium Level 8.7 Alkaline Phosphatase 102 Aspartate Amino Transf (AST/SGOT) 23 Alanine Aminotransferase (ALT/SGPT) 36 Total Bilirubin 0.3 Sodium Level 140 Potassium Level 3.5 Chloride Level 104 Carbon Dioxide Level 27.4 Anion Gap 9 Estimat Glomerular Filtration Rate 76 Lactic Acid Level 2.9 3.0 1.5 Urine Color LIGHT-YELLOW Urine Turbidity CLEAR Urine pH 7.0 Urine Specific [place] 1.016 Urine Protein 30 Urine Glucose (UA) NEG Urine Ketones NEG Urine Occult Blood MOD Urine Nitrite NEG Urine Bilirubin NEG Urine Urobilinogen LESS THAN 2.0 Urine Leukocyte Esterase NEG Urine RBC 10 Urine WBC LESS THAN 1 Urine Squamous Epithelial Cells 1 Urine Bacteria RARE Urine Mucus FEW Microscopic Urinalysis Comment CULT NOT INDICATED Date/Time Source Procedure Growth Status 10/26/17 23:05 Blood Peripheral Aerobic Blood Culture Pending Received 10/26/17 23:05 Blood Peripheral Anaerobic Blood Culture Pending Received 10/27/17 00:50 Wound Abdomen Gram Stain Pending Received 10/27/17 00:50 Wound Abdomen Wound Culture Pending Received Result Diagram: 10/26/17 2300 10/26/17 2300 Caprini VTE Risk Assessment Caprini VTE Risk Assessment: No/Low Risk (score <= 1) Caprini Risk Assessment Model Point Value = 1 Point Value = 2 Point Value = 3 Point Value = 5 Age 41-60 Minor surgery BMI > 25 kg/m2 Swollen legs Varicose veins or History of unexplained or recurrent spontaneous Oral contraceptives or hormone replacement Sepsis (< 1 month) Serious lung disease, including pneumonia (< 1 month) Abnormal pulmonary function Acute myocardial infarction Congestive heart failure (< 1 month) History of inflammatory bowel disease Medical patient at bed rest Age 61-74 Arthroscopic surgery Major open surgery (> 45 min) Laparoscopic surgery (> 45 min) Malignancy Confined to bed (> 72 hours) Immobilizing plaster cast Central venous access Age >= 75 History of VTE Family history of VTE Factor V Leiden Prothrombin [id number] Lupus anticoagulant Anticardiolipin antibodies Elevated serum homocysteine Heparin-induced thrombocytopenia Other congenital or acquired thrombophilia Stroke (< 1 month) Elective arthroplasty Hip, pelvis, or leg fracture Acute spinal cord injury (< 1 month) Prophylaxis Regimen Total Risk Factor Score Risk Level Prophylaxis Regimen 0-1 Low Early ambulation 2 Moderate Order ONE of the following: *Sequential Compression Device (SCD) *Heparin 5000 units SQ BID 3-4 Higher Order ONE of the following medications: *Heparin 5000 units SQ TID *Enoxaparin/Lovenox 40 mg SQ daily (WT < 150 kg, CrCl > 30 mL/min) *Enoxaparin/Lovenox 30 mg SQ daily (WT < 150 kg, CrCl > 10-29 mL/min) *Enoxaparin/Lovenox 30 mg SQ BID (WT < 150 kg, CrCl > 30 mL/min) AND/OR *Sequential Compression Device (SCD) 5 or more Highest Order ONE of the following medications: *Heparin 5000 units SQ TID (Preferred with Epidurals) *Enoxaparin/Lovenox 40 mg SQ daily (WT < 150 kg, CrCl > 30 mL/min) *Enoxaparin/Lovenox 30 mg SQ daily (WT < 150 kg, CrCl > 10-29 mL/min) *Enoxaparin/Lovenox 30 mg SQ BID (WT < 150 kg, CrCl > 30 mL/min) AND *Sequential Compression Device (SCD) Assessment and Plan Assessment and Plan Assessment/plan: 1. Abdominal cellulitis/abscess/sepsis Patient meets sepsis criteria with elevated lactic acid, leukocytosis and tachycardia Status post I&D in the emergency department Wound culture pending Blood cultures pending Vancomycin/Zosyn IV fluid hydration Wound care consulted 2. Ulcerative colitis/migraines Patient on any home medications at this time 3. Bipolar disorder Continue home Lamictal, Celexa and Seroquel FEN Regular diet Electrolytes: Monitor and replete when necessary NS 175 cc/hr Physician Certification 2 Midnight Certification Type: Admission for Inpatient Services Order for Inpatient Services The services are ordered in accordance with Medicare regulations or non- Medicare payer requirements, as applicable. In the case of services not specified as inpatient-only, they are appropriately provided as inpatient services in accordance with the 2-midnight benchmark. Estimated LOS (days): 2 2 days is the estimated time the patient will need to remain in the hospital, assuming treatment plan goals are met and no additional complications. Post-Hospital Plan: Not yet determined Chelsy Chan MD Oct 27, 2017 05:32
[2017-10-27] MEDS: ACETAMINOPHEN/HYDROcodone 325 MG/10 MG TAB PO PRN ×4 (05:38→17:40)
[2017-10-27] MEDS: PIPERACIL-TAZO 3.375 GM PREMIX 50 ML IV SCH ×3 (05:39→17:43)
[2017-10-27] MEDS: SODIUM CHLOR 0.9% 1000 ML INJ 1,000 ML IV SCH ×3 (05:40→16:47)
[2017-10-27] MEDS ORDERED: VANCOMYCIN INJ 2,300 MG in SODIUM CHLORID 0.9% 500 ML INJ 500 ML IV ONE (06:00)
[2017-10-27] MEDS: cloNIDine HCL 0.1 MG TAB PO PRN ×2 (09:44→16:48)
[2017-10-27] MEDS: SODIUM CHLORIDE 0.9% FLUSH 10 ML FLUSH IV FLUSH SCH ×2 (09:44→20:31)
[2017-10-27] MEDS: lamoTRIgine 100 MG TAB PO SCH ×2 (09:44→20:30)
--- NOTE | 2017-10-27 12:55 | PD.WCN.NOT ---
Wound Consult Description: Wound consult ordered by for wound management Communicated with: Tameka SANCHEZ, Recommendation: 1. Cleanse low abdomen (pannus area) with normal saline pat dry. 2. Lightly pack incision and cavity with 1/4 single strip of Maxorb AG leaving tail exposed. 3. Cover with dry gauze and secure with boarder gauze. 4. Change dressing every other day or as needed for exudate/dislodgement. Additional Information: Patient was seen today by sign writer hand in B-pod for wound management.Patient alert and oriented x3.Dressing removed from midline lower abdomen (pannus) to visualized s/p I&D with incision measuring ~0.4cm x ~0.2cm x ~0.5cm.Plain packing removed with scant serosanguineous drainage noted.Color Separation Photographer was unable to visualized wound base scant serosanguineous drainage noted to prior packing.Wound cleansed with normal saline pat dry.Periwound is intact with dark purple/red erythema tissue ~1.5cm circumferentially with light red red erythema spreading across pannus area.Cool to touch patient states only incision tender.Maxorb AG cut in thin strip lightly packed into incision cavity with tail exposed.Dry gauze applied and secured with boarder gauze.Dressing was signed and dated.Patient tolerated wound care well.Patient had questions regarding frequency of dressing change sign writer hand instructed patient on calcium alginate AG its moisture wicking effects and the silver component working as a antimicrobial agent in that she would only have to change dressing every other day or as needed for dislodgement/exudate.Patient demonstrated teaching using teach back method.Transport arrived ,patient had no further questions at this time. Liz Lion [facility] Oct 27, 2017 12:55
[2017-10-27] MEDS: VANCOMYCIN 1,500 MG/NS 500 ML IV SCH ×2 (17:31)
[2017-10-27] MEDS: QUEtiapine FUMARATE 300 MG TAB PO SCH (20:30)
[2017-10-27] MEDS: CITALOPRAM HYDROBROMIDE 20 MG TAB PO SCH (20:30)
[2017-10-28] VITALS: BP 165/99; PULSE 113; RESP 20; TEMP 97.9; O2SAT 96
[2017-10-28] MEDS: PIPERACIL-TAZO 3.375 GM PREMIX 50 ML IV SCH ×3 (00:11→11:48)
[2017-10-28] MEDS: ACETAMINOPHEN/HYDROcodone 325 MG/5 MG TAB PO PRN (00:14)
[2017-10-28] MEDS: SODIUM CHLOR 0.9% 1000 ML INJ 1,000 ML IV SCH ×5 (00:14→22:24)
[2017-10-28 04:00] VITALS: BP 147/93; PULSE 99; RESP 20; TEMP 97.6; O2SAT 96
[2017-10-28] MEDS: ACETAMINOPHEN/HYDROcodone 325 MG/10 MG TAB PO PRN ×4 (04:21→22:26)
[2017-10-28] MEDS: VANCOMYCIN 1,500 MG/NS 500 ML IV SCH ×4 (05:26→20:52)
[2017-10-28 05:50] LABS: AUTOMATED NEUTROPHIL # 10.9 TH/MM3 (1.8-7.7); BASOPHIL # 0.1 TH/MM3 (0-0.2); BASOPHIL % 0.5 % (0.0-2.0); EOSINOPHIL # 0.7 TH/MM3 (0-0.4); EOSINOPHIL % 4.6 % (0.0-4.0); HEMATOCRIT 37.4 % (35.0-46.0); HEMOGLOBIN 12.8 GM/DL (11.6-15.3); LYMPH % 18.2 % (9.0-44.0); LYMPHOCYTE # 2.8 TH/MM3 (1.0-4.8); MEAN CELL VOLUME 88.2 FL (80.0-100.0); MEAN CORPUSCULAR HEMOGLOBIN 30.3 PG (27.0-34.0); MEAN CORPUSCULAR HGB CONC 34.4 % (32.0-36.0); MEAN PLATELET VOLUME 8.5 FL (7.0-11.0); MONO % 6.7 % (0.0-8.0); PLATELET COUNT 254 TH/MM3 (150-450); RED BLOOD COUNT 4.24 MIL/MM3 (4.00-5.30); RED CELL DISTRIBUTION WIDTH 12.9 % (11.6-17.2); WHITE BLOOD COUNT 15.6 TH/MM3 (4.0-11.0)
[2017-10-28 06:24] LABS: ALBUMIN 2.7 GM/DL (3.4-5.0); ALKALINE PHOSPHATASE 94 U/L (45-117); ALT (GPT) 24 U/L (10-53); AST (GOT) 16 U/L (15-37); BICARBONATE 26.6 MEQ/L (21.0-32.0); BLOOD UREA NITROGEN 5 MG/DL (7-18); CALCIUM 8.1 MG/DL (8.5-10.1); CHLORIDE 105 MEQ/L (98-107); CREATININE 0.71 MG/DL (0.50-1.00); GLOMERULAR FILTRATION RATE 94 ML/MIN (>89); GLUCOSE,RANDOM 130 MG/DL (74-106); SODIUM (NA) 140 MEQ/L (136-145); TOTAL BILIRUBIN ADULT 0.4 MG/DL (0.2-1.0)
[2017-10-28 08:00] VITALS: BP 141/84; PULSE 97; RESP 18; TEMP 97.8; O2SAT 96
[2017-10-28] MEDS: SODIUM CHLORIDE 0.9% FLUSH 10 ML FLUSH IV FLUSH SCH ×2 (09:00→20:53)
[2017-10-28] MEDS: lamoTRIgine 100 MG TAB PO SCH ×2 (09:20→20:54)
[2017-10-28 12:00] VITALS: BP 172/108; PULSE 97; RESP 18; TEMP 98.1; O2SAT 97
[2017-10-28] MEDS: cloNIDine HCL 0.1 MG TAB PO PRN ×2 (12:44→20:55)
--- NOTE | 2017-10-28 15:29 | HHI.PR ---
Subjective Remarks Follow-up for anterior abdominal abscess, cellulitis. Patient is currently doing well. No fever or chills. She reports persistent erythema. Objective Vitals Vital Signs Date Time Temp Pulse Resp B/P (MAP) Pulse Ox O2 Delivery O2 Flow Rate FiO2 10/28/17 12:00 98.1 97 18 172/108 (129) 97 10/28/17 10:20 16 10/28/17 08:00 97.8 97 18 141/84 (103) 96 10/28/17 04:00 97.6 99 20 147/93 (111) 96 10/28/17 00:00 97.9 113 20 165/99 (121) 96 10/27/17 20:00 98.0 102 20 183/100 (127) 94 10/27/17 15:30 98.0 106 19 163/93 (116) 94 I/O 10/27/17 10/27/17 10/27/17 10/28/17 10/28/17 10/28/17 07:00 15:00 23:00 07:00 15:00 23:00 Intake Total 3100 ml 50 ml 650 ml 1260 ml Balance 3100 ml 50 ml 650 ml 1260 ml Intake Oral 360 ml IV Total 3100 ml 50 ml 650 ml 900 ml # Voids 1 2 # Bowel Movements 0 0 Result Diagram: 10/28/1731 10/28/17530 Objective Remarks GENERAL: Alert, oriented 3, NAD. Morbidly obese. SKIN: Warm and dry. HEAD: Normocephalic. EYES: No scleral icterus. No injection or drainage. NECK: Supple, trachea midline. No JVD or lymphadenopathy. CARDIOVASCULAR: Regular rate and rhythm without murmurs, gallops, or rubs. RESPIRATORY: Breath sounds equal bilaterally. No accessory muscle use. GASTROINTESTINAL: Abdomen soft, non-tender, nondistended. There is an anterior abdominal wall abscess status post I&D, surrounding erythema present. No drainage. MUSCULOSKELETAL: No cyanosis, or edema. BACK: Nontender without obvious deformity. No CVA tenderness. Procedures Abdominal anterior wall abscess - I&D in the emergency department. A/P Problem List: (1) Abdominal wall abscess ICD Code: L02.211 - Cutaneous abscess of abdominal wall (2) Sepsis ICD Code: A41.9 - Sepsis, unspecified organism (3) Ulcerative colitis ICD Code: K51.90 - Ulcerative colitis Status: Acute Assessment and Plan 37-year-old female with a past medical history significant for ulcerative colitis, migraines and bipolar disorder presents to the emergency department for evaluation of an abdominal abscess/cellulitis. Patient underwent I&D in the emergency department. She was started on vancomycin and Zosyn for skin abscess. Sepsis (heart rate 130, respiration 24, WBC 20 3.9K, infection abdominal anterior wall) Anterior abdominal wall abscess Status post I&D in the emergency department. Microbiology shows heavy growth of MRSA. Will discontinue Zosyn and continue vancomycin only. History of ulcerative colitis -currently on no medications. Bipolar disorder Depression Continue Lamictal, Celexa, Seroquel. GERD - continue PPI. Full code. Lovenox. Basil Miranda DO Oct 28, 2017 3:29 pm
[2017-10-28 16:00] VITALS: BP 144/84; PULSE 95; RESP 18; TEMP 98.1; O2SAT 97
[2017-10-28] MEDS ORDERED: PHARMACY ORDERED LAB ONE (17:45)
[2017-10-28] MEDS ORDERED: PANTOPRAZOLE SOD 40 MG DELAYED RELEASE TAB PO ONE (18:15)
[2017-10-28 20:37] VITALS: BP 192/100; PULSE 105; RESP 20; TEMP 98.5; O2SAT 98
[2017-10-28] MEDS: ENOXAPARIN SODIUM 40 MG/0.4 ML SYRINGE SQ SCH (20:53)
[2017-10-28] MEDS: CITALOPRAM HYDROBROMIDE 20 MG TAB PO SCH (20:54)
[2017-10-28] MEDS: QUEtiapine FUMARATE 300 MG TAB PO SCH (20:55)
[2017-10-28] MEDS ORDERED: LEVOCETIRIZINE 5 MG PO SCH (21:00)
[2017-10-29 00:09] VITALS: BP 157/85; PULSE 100; RESP 20; TEMP 98.2; O2SAT 97
[2017-10-29 04:09] VITALS: BP 159/74; PULSE 96; RESP 20; TEMP 97.9; O2SAT 98
[2017-10-29] MEDS: ACETAMINOPHEN/HYDROcodone 325 MG/10 MG TAB PO PRN ×3 (05:18→20:57)
[2017-10-29] MEDS: SODIUM CHLOR 0.9% 1000 ML INJ 1,000 ML IV SCH ×4 (05:18→20:54)
[2017-10-29 07:06] LABS: BICARBONATE 25.8 MEQ/L (21.0-32.0); CALCIUM 8.2 MG/DL (8.5-10.1); CREATININE 0.62 MG/DL (0.50-1.00)
[2017-10-29 08:00] VITALS: BP 141/91; PULSE 92; RESP 20; TEMP 98; O2SAT 96
[2017-10-29] MEDS ORDERED: PHARMACY ORDERED LAB ONE (08:45)
[2017-10-29] MEDS: VANCOMYCIN 1,500 MG/NS 500 ML IV SCH ×6 (09:00→21:04)
[2017-10-29] MEDS: SODIUM CHLORIDE 0.9% FLUSH 10 ML FLUSH IV FLUSH SCH ×2 (09:00→20:54)
[2017-10-29 09:54] LABS: AUTOMATED NEUTROPHIL # 8.3 TH/MM3 (1.8-7.7); BASOPHIL # 0.1 TH/MM3 (0-0.2); EOSINOPHIL # 0.9 TH/MM3 (0-0.4); EOSINOPHIL % 6.6 % (0.0-4.0); HEMATOCRIT 36.4 % (35.0-46.0); HEMOGLOBIN 12.2 GM/DL (11.6-15.3); LYMPH % 23.5 % (9.0-44.0); LYMPHOCYTE # 3.2 TH/MM3 (1.0-4.8); MEAN CELL VOLUME 87.9 FL (80.0-100.0); MEAN CORPUSCULAR HEMOGLOBIN 29.4 PG (27.0-34.0); MEAN CORPUSCULAR HGB CONC 33.5 % (32.0-36.0); MEAN PLATELET VOLUME 9.8 FL (7.0-11.0); MONO % 7.5 % (0.0-8.0); NEUT % 61.4 % (16.0-70.0); PLATELET COUNT 213 TH/MM3 (150-450); RED BLOOD COUNT 4.14 MIL/MM3 (4.00-5.30); RED CELL DISTRIBUTION WIDTH 13.2 % (11.6-17.2); WHITE BLOOD COUNT 13.5 TH/MM3 (4.0-11.0)
[2017-10-29] MEDS: PANTOPRAZOLE SOD 40 MG DELAYED RELEASE TAB PO SCH (10:39)
[2017-10-29] MEDS: lamoTRIgine 100 MG TAB PO SCH ×2 (10:40→20:55)
[2017-10-29] MEDS ORDERED: BACT800T5 PO (10:55)
--- NOTE | 2017-10-29 11:24 | HHI.DS ---
Discharge Summary Admission Date Oct 27, 2017 at 3:09 am Discharge Date: Oct 29, 2017 Admitting Diagnosis abdo abscess , early spesis (1) Abdominal wall abscess ICD Code: L02.211 - Cutaneous abscess of abdominal wall (2) Sepsis ICD Code: A41.9 - Sepsis, unspecified organism (3) Ulcerative colitis ICD Code: K51.90 - Ulcerative colitis Status: Acute Procedures Abdominal anterior wall abscess - I&D in the emergency department. Brief History - From Admission 37-year-old female with a past medical history significant for ulcerative colitis, migraines and bipolar disorder presents to the emergency department for evaluation of an abdominal abscess/cellulitis. The patient was initially seen in urgent care who noted that she had a fever and an abdominal abscess and sent her to the emergency department for further evaluation. The patient states that on Tuesday night she had a red spot on her abdomen that progressively worsened. She states that over the course of yesterday the redness spread and the area became acutely painful. She is status post incision and drainage of the abscess in the emergency department. She endorses fever/chills. Denies any chest pain or shortness of breath. No nausea/vomiting /diarrhea. No weakness. CBC/BMP: 10/29/17 0618 10/29/17 0618 Significant Findings Laboratory Tests Test 10/26/17 23:00 10/27/17 00:56 10/27/17 01:50 10/27/17 04:35 White Blood Count 23.9 TH/MM3 (4.0-11.0) Neutrophils (%) (Auto) 79.9 % (16.0-70.0) Neutrophils # (Auto) 19.1 TH/MM3 (1.8-7.7) Monocytes # (Auto) 1.4 TH/MM3 (0-0.9) Eosinophils # (Auto) 0.6 TH/MM3 (0-0.4) Random Glucose 126 MG/DL (74-106) Estimat Glomerular Filtration Rate 76 ML/MIN (>89) Lactic Acid Level 2.9 mmol/L (0.4-2.0) 3.0 mmol/L (0.4-2.0) Urine Protein 30 mg/dL (NEG-TRACE) Urine Occult Blood MOD (NEG) Urine RBC 10 /hpf (0-3) Urine Bacteria RARE /hpf (NONE) Urine Mucus FEW /lpf (OCC) Test 10/28/17 05:31 10/29/17 06:18 White Blood Count 15.6 TH/MM3 (4.0-11.0) 13.5 TH/MM3 (4.0-11.0) Eosinophils (%) (Auto) 4.6 % (0.0-4.0) 6.6 % (0.0-4.0) Neutrophils # (Auto) 10.9 TH/MM3 (1.8-7.7) 8.3 TH/MM3 (1.8-7.7) Monocytes # (Auto) 1.0 TH/MM3 (0-0.9) 1.0 TH/MM3 (0-0.9) Eosinophils # (Auto) 0.7 TH/MM3 (0-0.4) 0.9 TH/MM3 (0-0.4) Blood Urea Nitrogen 5 MG/DL (7-18) 4 MG/DL (7-18) Random Glucose 130 MG/DL (74-106) Albumin 2.7 GM/DL (3.4-5.0) Calcium Level 8.1 MG/DL (8.5-10.1) 8.2 MG/DL (8.5-10.1) Potassium Level 3.1 MEQ/L (3.5-5.1) PE at Discharge GENERAL: Alert, oriented 3, NAD. Morbidly obese. SKIN: Warm and dry. HEAD: Normocephalic. EYES: No scleral icterus. No injection or drainage. NECK: Supple, trachea midline. No JVD or lymphadenopathy. CARDIOVASCULAR: Regular rate and rhythm without murmurs, gallops, or rubs. RESPIRATORY: Breath sounds equal bilaterally. No accessory muscle use. GASTROINTESTINAL: Abdomen soft, non-tender, nondistended. There is an anterior abdominal wall abscess status post I&D, surrounding erythema present. No drainage. MUSCULOSKELETAL: No cyanosis, or edema. BACK: Nontender without obvious deformity. No CVA tenderness. Pt update on day of discharge Patient is doing well. No acute concerns. No fever, chills. Hospital Course 37-year-old female with a past medical history significant for ulcerative colitis, migraines and bipolar disorder presents to the emergency department for evaluation of an abdominal abscess/cellulitis. Patient underwent I&D in the emergency department. She was started on vancomycin and Zosyn for skin abscess. Sepsis (heart rate 130, respiration 24, WBC 20 3.9K, infection abdominal anterior wall) Anterior abdominal wall abscess Status post I&D in the emergency department. Microbiology shows heavy growth of MRSA. Patient has been afebrile. We will discharge her home on oral abx - Bactrim DS BID for 2 weeks. Follow up with PCP in one week. History of ulcerative colitis -currently on no medications. Bipolar disorder Depression Continue Lamictal, Celexa, Seroquel. Hypertension - started patient on Amlodipine 5mg Qday. GERD - continue PPI. Pt Condition on Discharge: Good Discharge Disposition: Discharge Home Discharge Time: <= 30 minutes Discharge Instructions DIET: Follow Instructions for: As Tolerated, No Restrictions Activities you can perform: Regular-No Restrictions Follow up Referrals: PCP Follow-up - 1 Week PCP Follow-up New Medications: Amlodipine (Amlodipine) 5 Mg Tab 5 MG PO DAILY for Blood Pressure Management, #30 TAB 0 Refills Sulfamethoxazole-Trimethoprim (Bactrim DS) 800-160 Mg Tab 1 TAB PO BID for Infection, #28 TAB 0 Refills Changed Medications: Hydrocodone-Acetaminophen (Hydrocodone-Acetaminophen) 10-325 mg Tab 10 MG PO Q6HR PRN for PAIN SCALE 6 TO 10, #15 TAB 1 Refill (Changed from: Q4H; 60) Continued Medications: Citalopram (Celexa) 20 Mg Tab 20 MG PO HS for Control Depression, #30 TAB 0 Refills Colestipol (Colestipol) 1 Gm Tab 2 GM PO TID for Cholesterol Management, #60 TAB 0 Refills Cyclobenzaprine (Flexeril) 10 Mg Tab 10 MG PO Q8H PRN for MUSCLE SPASM, #90 TAB 5 Refills Lamotrigine (Lamictal) 200 Mg Tab 200 MG PO BID for Control Seizures, #60 TAB 0 Refills Levocetirizine (Xyzal) 5 Mg Tab 5 MG PO HS for Allergy Management, #30 TAB 0 Refills Multiple Vitamin (Multiple Vitamin) 1 Tab 1 TAB PO DAILY for Nutritional Supplement, TAB 0 Refills Omeprazole (Omeprazole) 20 Mg Tab 20 MG PO DAILY, #30 TAB 0 Refills Quetiapine (Seroquel) 300 Mg Tab 300 MG PO HS, #30 TAB 0 Refills Discontinued Medications: Hydrocodone-Acetaminophen (Hydrocodone-Acetaminophen) 5-325 mg Tab 1 TAB PO Q4H PRN for PAIN, TAB 0 Refills Hydrocodone-Acetaminophen (Hydrocodone-Acetaminophen) 10-325 mg Tab 1 TAB PO Q8HR PRN for PAIN SCALE 1 TO 10, #62 TAB 0 Refills Basil Miranda DO Oct 29, 2017 11:24
--- NOTE | 2017-10-29 11:39 | HHI.FF ---
Face to Face Verification Diagnosis: (1) Abdominal wall abscess (2) Morbid obesity with body mass index of 50.0-59.9 in adult (3) Bipolar 2 disorder Home Health Nursing Order: Signs/symptoms of disease process Wound care and dressing changes Nursing assessment with vital signs I have seen patient Chelsy Mendez on 10/29/17. My clinical findings support the need for the requested home health care services because: Ltd mobility - disease progression Deconditioned w/ increased weakness Limited ability to care for self Need for psychosocial assistance Impaired cognition/judgement High risk of falls Infection w/ risk of complications I certify that my clinical findings support that this patient is homebound because: Unsteady gait/balance Unsafe to leave home unassisted Need for psychosocial assistance Unable to use public transportation Basil Miranda DO Oct 29, 2017 11:39 am
[2017-10-29 12:00] VITALS: BP 164/84; PULSE 90; RESP 19; TEMP 97.8; O2SAT 95
[2017-10-29] MEDS: ENOXAPARIN SODIUM 40 MG/0.4 ML SYRINGE SQ SCH (17:10)
[2017-10-29 20:00] VITALS: BP 141/68; PULSE 91; RESP 18; TEMP 97.7; O2SAT 97
[2017-10-29] MEDS: QUEtiapine FUMARATE 300 MG TAB PO SCH (20:55)
[2017-10-29] MEDS: CITALOPRAM HYDROBROMIDE 20 MG TAB PO SCH (20:55)
[2017-10-30] VITALS: BP 155/80; PULSE 99; RESP 20; TEMP 98.2; O2SAT 92
[2017-10-30] MEDS: ACETAMINOPHEN/HYDROcodone 325 MG/10 MG TAB PO PRN (04:37)
[2017-10-30] MEDS: SODIUM CHLOR 0.9% 1000 ML INJ 1,000 ML IV SCH (04:38)
[2017-10-30 05:24] LABS: CREATININE 0.71 MG/DL (0.50-1.00)
[2017-10-30 08:00] VITALS: BP 176/82; PULSE 98; RESP 18; TEMP 97.2; O2SAT 94
[2017-10-30] MEDS: VANCOMYCIN 1,500 MG/NS 500 ML IV SCH ×2 (09:12)
[2017-10-30] MEDS: SODIUM CHLORIDE 0.9% FLUSH 10 ML FLUSH IV FLUSH SCH (09:13)
[2017-10-30] MEDS: PANTOPRAZOLE SOD 40 MG DELAYED RELEASE TAB PO SCH (09:13)
[2017-10-30] MEDS: lamoTRIgine 100 MG TAB PO SCH (09:13)
[2017-10-30] MEDS: ACETAMINOPHEN/HYDROcodone 325 MG/5 MG TAB PO PRN ×2 (09:19→13:32)
--- NOTE | 2017-10-30 10:24 | HHI.PR ---
Subjective Remarks Follow-up for anterior abdominal abscess, cellulitis. Patient is doing well. No fever, chills. Waiting for home health set up. Objective Vitals Vital Signs Date Time Temp Pulse Resp B/P (MAP) Pulse Ox O2 Delivery O2 Flow Rate FiO2 10/30/17 08:00 97.2 98 18 176/82 (113) 94 10/30/17 00:00 98.2 99 20 155/80 (105) 92 10/29/17 20:00 97.7 91 18 141/68 (92) 97 10/29/17 12:00 97.8 90 19 164/84 (110) 95 I/O 10/29/17 10/29/17 10/29/17 10/30/17 10/30/17 10/30/17 07:00 15:00 23:00 07:00 15:00 23:00 Intake Total 1780 ml 515 ml 1500 ml Balance 1780 ml 515 ml 1500 ml Intake Oral 780 ml IV Total 1000 ml 515 ml 1500 ml # Voids 3 2 Result Diagram: 10/29/17 0618 10/30/17 0412 Objective Remarks GENERAL: Alert, oriented 3, NAD. Morbidly obese. SKIN: Warm and dry. HEAD: Normocephalic. EYES: No scleral icterus. No injection or drainage. NECK: Supple, trachea midline. No JVD or lymphadenopathy. CARDIOVASCULAR: Regular rate and rhythm without murmurs, gallops, or rubs. RESPIRATORY: Breath sounds equal bilaterally. No accessory muscle use. GASTROINTESTINAL: Abdomen soft, non-tender, nondistended. There is an anterior abdominal wall abscess status post I&D, surrounding erythema present. No drainage. MUSCULOSKELETAL: No cyanosis, or edema. BACK: Nontender without obvious deformity. No CVA tenderness. Procedures Abdominal anterior wall abscess - I&D in the emergency department. A/P Problem List: (1) Abdominal wall abscess ICD Code: L02.211 - Cutaneous abscess of abdominal wall (2) Sepsis ICD Code: A41.9 - Sepsis, unspecified organism (3) Ulcerative colitis ICD Code: K51.90 - Ulcerative colitis Status: Acute Assessment and Plan 37-year-old female with a past medical history significant for ulcerative colitis, migraines and bipolar disorder presents to the emergency department for evaluation of an abdominal abscess/cellulitis. Patient underwent I&D in the emergency department. She was started on vancomycin and Zosyn for skin abscess. Sepsis (heart rate 130, respiration 24, WBC 20 3.9K, infection abdominal anterior wall) Anterior abdominal wall abscess Status post I&D in the emergency department. Microbiology shows heavy growth of MRSA. Continue vancomycin only. Bactrim on discharge. History of ulcerative colitis -currently on no medications. Bipolar disorder Depression Continue Lamictal, Celexa, Seroquel. GERD - continue PPI. Full code. Lovenox. Basil Miranda DO Oct 30, 2017 10:24 am
[2017-10-30] MEDS ORDERED: HYDR-3583 PO (11:03)
[2017-10-30 12:00] VITALS: BP 186/134; PULSE 97; RESP 18; TEMP 97.4; O2SAT 95
[2017-10-30] MEDS ORDERED: AMLO5TAB2 PO (12:11)
== END 2017-10-30 13:45 | disposition home health service (06) | DRG 872 ==
LOC: NEPC 20:40 → NEDA 10-27 03:09 → N07A 10-27 12:46
PROVIDERS: ADMIT Hospitalist; ATTEND Hospitalist
PROC: 0H97XZX Drainage of Abdomen Skin, External Approach, Diagnostic (ICD-10-PCS; principal; 2017-10-27)
DX: A41.9 Sepsis, unspecified organism (principal); K51.90 Ulcerative colitis, unspecified, without complications; I10 Essential (primary) hypertension; L02.211 Cutaneous abscess of abdominal wall; L03.311 Cellulitis of abdominal wall; B95.62 Methicillin resistant Staphylococcus aureus infection as the cause of diseases classified elsewhere; Z68.43 Body mass index [BMI] 50.0-59.9, adult; E66.9 Obesity, unspecified; G43.909 Migraine, unspecified, not intractable, without status migrainosus; F31.9 Bipolar disorder, unspecified; G47.33 Obstructive sleep apnea (adult) (pediatric); K21.9 Gastro-esophageal reflux disease without esophagitis; Z98.1 Arthrodesis status
CPT/HCPCS: 10061; 80048; 80053; 81001; 82565; 83605; 84703; 85025; 86403; 87040; 87070; 87147; 87186; 87205; 96361; 96365; 96375; J1650; J1885; J2270; J2543; J3370; J7030; J7040